=== PATIENT | female | born 1960 | race Caucasian/White ===

== ENCOUNTER → 2022-01-20 14:25 | Outpatient (CLI) | payer BC, SELFPAY ==
--- NOTE | 2022-01-20 14:32 | DI.RAD.S_ITS ---
PROCEDURE: XR CERVICAL SPINE 2V OR 3V INDICATIONS: Pain in a person with psoriatic arthritis TECHNIQUE: 3 view(s) of the cervical spine were acquired. COMPARISON: None. FINDINGS: Bones: No fractures or dislocations to the T1 level. The lateral masses of C1 appear intact on the odontoid view. No suspicious bony lesions. Disc space narrowing and facet hypertrophy noted in the lower cervical spine. Craniovertebral relationships are normal Soft tissues: No prevertebral soft tissue swelling. IMPRESSION: Degenerative disc disease and arthropathy in the lower cervical spine Approved by: Carlos Alberto Lockhart M.D. on 01/20/2022 at 15:55
== END ==
PROVIDERS: PCP Internal Medicine; Referring Provider Internal Medicine; Visit Provider Internal Medicine
DX: L40.50 Arthropathic psoriasis, unspecified (principal); M50.30 Other cervical disc degeneration, unspecified cervical region; M47.812 Spondylosis without myelopathy or radiculopathy, cervical region
CPT/HCPCS: 72040

== ENCOUNTER → 2023-04-27 11:10 | Outpatient (CLI) | payer BC, SELFPAY ==
--- NOTE | 2023-04-27 11:21 | DI.CT.S_ITS ---
PROCEDURE: CT SOFT TISSUE NECK WO/W CON INDICATIONS: LAB, SUBMANDIBULAR GLAND INFLAMMATION TECHNIQUE: Before and after the administration of intravenous contrast, 2.0 mm axial sections acquired through the neck and down to the taz. Additional 2.0 mm coronal and sagittal reformats were generated of the contrast enhanced images. For radiation dose reduction, the following was used: automated exposure control. COMPARISON: None. FINDINGS: Image quality: There is artifact associated with the metallic hardware. Artifact from the metallic hardware is reduced by metal reconstruction algorithm. Lymph nodes: No enlarged lymph nodes seen throughout the neck. Vessels: Visualized vasculature appears patent. Neck spaces: The oropharynx, nasopharynx, and pharynx demonstrate no mucosal lesions. The vocal cords, false vocal cords, pyriform sinuses, epiglottis, vallecula, and tongue base all appear normal. Extramucosal spaces appear unremarkable. Glands: In this patient with this given history, scrutiny is given to the submandibular glands. On precontrast imaging, no findings submandibular stones are submandibular duct stones are seen. On postcontrast imaging, the submandibular glands demonstrate a normal, symmetric appearance, without masses or abnormal enhancement. No surrounding inflammatory change can be seen. The parotid glands appear normal. Within the left thyroid gland, there is a 5 mm nonenhancing nodule, as on series 6, image 65. Miscellaneous: Visualized lungs appear clear. Superficial soft tissues appear normal. Bones: No suspicious bony lesions. Visualized sinuses and mastoids appear unremarkable. At least moderate cervical spine degenerative change can be seen. IMPRESSION: Normal appearing submandibular glands, without stones, masses, abnormal enhancement, or inflammatory change. Additional findings: At least moderate cervical spine degenerative change 5 mm left thyroid nodule incidentally noted. By published criteria, no specific imaging follow-up is recommended for a nodule of this size in a patient of this age. Dictated by: Dhruv Plata M.D. on 04/27/2023 at 14:47 Approved by: Dhruv Plata M.D. on 04/27/2023 at 14:50
[2023-04-27 11:43] LABS: Add Manual Diff / Slide Review NO; Basophils Absolute Auto 0 /uL (0-100); Basophils Percent Auto 0.6 % (0-2); Eosinophils Absolute Auto 100 /uL (0-450); Hematocrit 40.6 % (36-46); Hemoglobin 13.7 g/dL (12.0-16.0); Lymphocytes Absolute Auto 1700 /uL (1100-4500); Lymphocytes Percent Auto 34.2 % (25-40); Mean Corpuscular HGB Conc 33.7 % (30-36); Mean Corpuscular Hemoglobin 29.1 PG (26-34); Mean Corpuscular Volume 86.4 fL (80-100); Monocytes Absolute Auto 300 /uL (0-900); Monocytes Percent Auto 6.8 % (3-14); Neutrophils Absolute Auto 2800 /uL (1500-7000); Neutrophils Percent Auto 56.4 % (50-75); Platelet Count 303 X10^3/uL (150-400); Red Cell Distribution Width 12.9 % (11.6-14.8)
[2023-04-27 12:01] LABS: BUN Creatinine Ratio 38.9 (6-22); Blood Urea Nitrogen 21 mg/dL (7-17); Calcium 9.1 mg/dL (8.4-10.2); Carbon Dioxide 28 mmol/L (22-32); Chloride 104 mmol/L (98-107); Estimated Glomerular Filt Rate > 60 mL/min (>60); Glucose 136 mg/dL (80-110); HEMOLYSIS < 15 (0-50); Potassium 4.4 mmol/L (3.4-5.1); Sodium 139 mmol/L (137-145)
== END ==
PROVIDERS: PCP Physician Assistant; Referring Provider Physician Assistant; Visit Provider Physician Assistant
DX: E11.69 Type 2 diabetes mellitus with other specified complication (principal); E78.2 Mixed hyperlipidemia; L40.50 Arthropathic psoriasis, unspecified; I10 Essential (primary) hypertension; R59.9 Enlarged lymph nodes, unspecified; K11.20 Sialoadenitis, unspecified; M54.2 Cervicalgia
CPT/HCPCS: 36415; 70492; 80048; 85025; Q9967

== ENCOUNTER → 2023-04-29 09:53 | Outpatient (CLI) | payer BC, SELFPAY ==
--- NOTE | 2023-04-29 | DI.MG.S_ITS ---
BILATERAL DIGITAL SCREENING MAMMOGRAM 3D/2D WITH CAD: 04/29/2023 CLINICAL: Routine screening. Family history of breast cancer. No prior exams were available for comparison. There are scattered areas of fibroglandular density in both breasts (category b / 25%-50% glandular tissue). Current study was also evaluated with a Computer Aided Detection (CAD) system. No significant masses, calcifications, or other findings are seen in either breast. IMPRESSION: NEGATIVE There is no mammographic evidence of malignancy. A 1 year screening mammogram is recommended. Based on the Tyrer Cuzick model (a risk assessment model) the patient's lifetime risk is 7.0% and her 10 year risk is 2.9%. According to the ACR, ACS, and NCCN guidelines, an annual breast MRI exam along with mammogram is recommended if the patient's lifetime risk is 20% or greater. This exam was interpreted at Station ID: [id number]. NOTE: For mammograms, a report in lay terms will be sent to the patient. Approximately 15% of breast malignancies will not be visualized mammographically. In the management of a palpable breast mass, a negative mammogram must not discourage biopsy of a clinically suspicious lesion. Electronically Signed By: Robina martinez/ajay:04/29/2023 15:41:46 letter sent: Normal Exam ACR BI-RADS Category 1: Negative 3341F
== END ==
LOC: MAMMO 09:53
PROVIDERS: PCP Physician Assistant; Referring Provider Physician Assistant; Visit Provider Physician Assistant
DX: Z12.31 Encounter for screening mammogram for malignant neoplasm of breast (principal); Z80.3 Family history of malignant neoplasm of breast
CPT/HCPCS: 77063; 77067

== ENCOUNTER → 2024-03-07 08:47 | Outpatient (CLI) | payer BC, SELFPAY ==
[2024-03-07 10:24] LABS: Hematocrit 42.7 % (36-46); Hemoglobin 14.3 g/dL (12.0-16.0); Mean Corpuscular HGB Conc 33.6 % (30-36); Mean Corpuscular Hemoglobin 29.2 PG (26-34); Mean Corpuscular Volume 86.9 fL (80-100); Platelet Count 264 X10^3/uL (150-400); Red Blood Cell Count 4.91 X10^6/uL (4.0-5.2)
[2024-03-07 10:26] LABS: Hemoglobin A1C% w Est Avg Glu 8.4 % (4.0-6.0)
[2024-03-07 10:44] LABS: Alanine Aminotransferase 32 IU/L (<35); Albumin 4.5 g/dL (3.5-5.0); Albumin Globulin Ratio 1.6 (1.0-2.8); Alkaline Phosphatase 95 U/L (38-126); Aspartate Aminotransferase 23 IU/L (14-36); Bilirubin Total 1.1 mg/dL (0.2-1.3); Blood Urea Nitrogen 20 mg/dL (7-17); Calcium 9.2 mg/dL (8.4-10.2); Carbon Dioxide 29 mmol/L (22-32); Chloride 106 mmol/L (98-107); Cholesterol 219 mg/dL (140-199); Estimated Glomerular Filt Rate > 60 mL/min (>60); Globulin 2.9 g/dL (1.7-4.1); Glucose 181 mg/dL (80-110); HDL Cholesterol 63 mg/dL (40-60); HEMOLYSIS < 15 (0-50); LDL Cholesterol Calculated 136 mg/dL (<100); Potassium 3.9 mmol/L (3.4-5.1); Sodium 141 mmol/L (137-145); Total Protein 7.4 g/dL (6.3-8.2); Triglycerides 98 mg/dL (35-150)
[2024-03-07 10:57] LABS: Creatinine Urine Random 62.77 mg/dL
[2024-03-07 11:14] LABS: Microalbumin Urine Random 0.8 mg/dL (0-1.6)
[2024-03-07 11:18] LABS: TSH w/ Reflex to FT4 0.79 uIU/mL (0.47-4.68)
== END ==
PROVIDERS: PCP Internal Medicine; Referring Provider Internal Medicine; Visit Provider Internal Medicine
DX: E78.2 Mixed hyperlipidemia (principal); I10 Essential (primary) hypertension; E11.42 Type 2 diabetes mellitus with diabetic polyneuropathy
CPT/HCPCS: 36415; 80053; 80061; 82043; 82570; 83036; 84443; 85027

== ENCOUNTER 2024-05-15 10:29 | Day surgery (SDC) | payer BC, SELFPAY ==
[2024-05-15 10:58] VITALS: BP 146/83; PULSE 74; RESP 16; TEMP 36.4; O2SAT 97
[2024-05-15] MEDS: LACTATED RINGERS 1,000 ML 42 ML IV (11:14)
--- NOTE | 2024-05-15 11:47 | P.HP_ITS ---
History of Present Illness History of Present Illness Date Patient Seen: 05/15/24 Time Patient Seen: 11:47 Chief complaint: Colonoscopy Narrative: 63-year-old woman history of numerous abdominal surgeries here for screening colonoscopy. Last colonoscopy 6 years ago normal. No family history of colon cancer. She had a iatrogenic colon injury undetected at the initial operation subsequently diverting colostomy takedown fistula was so forth. [facility] Medical History (Updated 02/08/24 @ 14:06 by Abdelrahman Simental MD) Bee sting-induced anaphylaxis Family history of melanoma Pustular psoriasis History of kidney stones Mixed hyperlipidemia Essential hypertension Type 2 diabetes mellitus with polyneuropathy Psoriatic arthritis Social History Smoking Status: Former smoker Meds Home Medications and Allergies Home Medications Medication Instructions Recorded Confirmed Type abatacept 125 mg/mL subcutaneous 125 mg SUBCUT QWEEK 02/08/24 05/15/24 History auto-injector (Orencia ClickJect) apremilast 30 mg tablet (Otezla) 30 mg PO BID 02/08/24 05/15/24 History azelastine 137 mcg (0.1 %) nasal 2 spray intranasal BID 02/08/24 05/15/24 History spray aerosol betamethasone dipropionate 0.05 % 1 applic topical DAILY PRN Rash 02/08/24 05/15/24 History topical ointment canagliflozin 300 mg tablet 300 mg PO DAILY #90 tabs 02/08/24 05/15/24 Rx (Invokana) carvedilol 3.125 mg tablet 3.125 mg PO DAILY 02/08/24 05/15/24 History celecoxib 100 mg capsule 100 mg PO BID 02/08/24 05/15/24 History diclofenac sodium 1 % topical gel 4 g topical QID 02/08/24 05/15/24 History epinephrine 0.3 mg/0.3 mL 0.3 mg (0.3 mL) IM Q5-15M PRN 02/08/24 05/15/24 Rx injection, auto-injector (EpiPen anaphylaxis #4 ea 2-Rasta) fluticasone propionate 50 1 spray intranasal DAILY 02/08/24 05/15/24 History mcg/actuation nasal spray,suspension lisinopril 10 mg tablet 10 mg PO DAILY 02/08/24 05/15/24 History multivitamin 1 tab PO DAILY 02/08/24 05/15/24 History sitagliptin phosphate 100 mg 100 mg PO DAILY #90 tabs 02/08/24 05/15/24 Rx tablet (Januvia) tamsulosin 0.4 mg capsule (Flomax) 0.4 mg PO DAILY 02/08/24 05/15/24 History tramadol 50 mg tablet 50 mg PO Q4H PRN Pain (Scale Score 02/08/24 05/15/24 History 4-6) Allergies Allergy/AdvReac Type Severity Reaction Status Date / Time amoxicillin Allergy Severe hives, Verified 05/15/24 10:50 rash, swelling bee venom protein (honey bee) Allergy Severe Anaphylaxis Verified 05/15/24 10:50 clindamycin Allergy Severe Rash Verified 05/15/24 10:50 Latex, Natural Rubber Allergy Severe Rash Verified 05/15/24 10:50 metformin AdvReac Severe Nausea Verified 05/15/24 10:50 pioglitazone AdvReac Intermediate muscle Verified 05/15/24 10:50 aches, nausea, tired Exam Vital Signs (past 8 hours): - 05/15/24 10:58 Temperature 97.6 F Pulse Rate 74 Respiratory Rate 16 Blood Pressure 146/83 H Pulse Oximetry 97 Oxygen Delivery Method Room Air Oxygen Delivery Method Room Air Narrative Exam Narrative: General adult woman alert oriented no acute distress Chest nonlabored respiration Extremities warm well perfused Assessment & Plan Assessment & Plan narrative: The patient requires colorectal screening and colonoscopy is recommended. Technical details were discussed. Risks, benefits, alternatives explained. Risks including but not limited to myocardial infarction, aspiration, bleeding, pain, missed lesion, incomplete examination, need for further radiographic studies, intestinal injury, and need for major abdominal surgery were discussed. All questions were answered to their satisfaction, and they are in agreement with this plan. Time-Based Coding :: [TOTAL MINUTES] spent with patient and on the chart (including review of chart, obtaining history, exam, reviewing outside data, placing orders, documenting exam and treatment plan, and counseling patient) on [DATE].
[2024-05-15 12:08] VITALS: BP 109/62; PULSE 78; RESP 14; TEMP 36.2; O2SAT 95
--- NOTE | 2024-05-15 12:10 | P.OP.COLON_ITS ---
Operative Date/Time/Diagnoses Date of procedure: 05/15/24 Time of procedure: 12:10 Pre-op diagnosis: Colorectal screening Procedure & Clinicians Study performed: Screening colonoscopy Same procedure as scheduled: Yes Indications: Colorectal screening Surgeon: Faizan Winston Procedure Notes Procedure in detail: The history and physical was performed/updated and the patient is ASA class is 2. The procedure was discussed in detail with the patient. Potential risks co mplications including infection, bleeding, missed diagnosis, perforation, need for surgery, and were explained. Their questions were answered and informed consent was obtained. Patient was brought to the procedure room and placed standard monitoring equipment. The patient's vital signs were monitored continuously throughout the entire procedure. Prior to starting time-out was performed. The patient was placed in the left lateral recumbent position. Procedural sedation was administered by anesthesia. Examination began with a thorough inspection of the perianal area there was no evidence of fissures, fistulae, external hemorrhoids or cutaneous malignancy. The colonoscopy scope was then placed into the anal canal and was advanced to the cecum, which was identified by the ileocecal valve, the appendiceal orifice and the confluence of the taenia. The scope was then slowly withdrawn examining colon thoroughly in all directions, irrigating it of any residual stool. The scope was retroflexed within the rectum The patient tolerated the procedure well. They will be discharged once criteria are met. The prep was of good/excellent quality. The withdrawl time was 7 minutes. FINDINGS * Normal colorectal anastomosis * No mass or polyps Specimen(s): none sent Impression: Normal anastomosis Post-procedure Plan for aftercare: Consider no further colonoscopy unless symptomatic given extensive abdominal surgery history Disposition: same day surgery
[2024-05-15 12:13] VITALS: BP 103/66; PULSE 84; RESP 10; O2SAT 94
[2024-05-15 12:18] VITALS: BP 113/68; PULSE 76; RESP 10; O2SAT 97
[2024-05-15 12:23] VITALS: BP 121/72; PULSE 70; RESP 14; O2SAT 97
[2024-05-15 12:29] VITALS: BP 129/92; PULSE 86; RESP 13; TEMP 36.4; O2SAT 98
== END 2024-05-15 12:54 | disposition home or self-care (01) ==
PROVIDERS: PCP Internal Medicine; Referring Provider Surgery; Visit Provider Surgery
PROC: 0DJD8ZZ Inspection of Lower Intestinal Tract, Via Natural or Artificial Opening Endoscopic (ICD-10-PCS; CPT 45378; principal; 2024-05-15 11:30)
DX: Z12.11 Encounter for screening for malignant neoplasm of colon (principal)
CPT/HCPCS: 45378; J2704

== ENCOUNTER → 2024-06-25 15:22 | Outpatient (CLI) | payer BC, SELFPAY ==
--- NOTE | 2024-06-25 15:23 | DI.MG.S_ITS ---
BILATERAL DIGITAL SCREENING MAMMOGRAM 3D/2D WITH CAD: 06/25/2024 CLINICAL: Routine screening. Family history of breast cancer. Comparison is made to exam dated: 04/29/2023 mammogram - [facility]. Mammogram 11/07/2019. There are scattered areas of fibroglandular density (category b / 25%-50% glandular tissue). Current study was also evaluated with a Computer Aided Detection (CAD) system. No significant masses, calcifications, or other findings are seen in either breast. Right breast scar marker. There has been no significant interval change. IMPRESSION: NEGATIVE There is no mammographic evidence of malignancy. A 1 year screening mammogram is recommended. Based on the Tyrer Cuzick model (a risk assessment model) the patient's lifetime risk is 6.8% and her 10 year risk is 2.9%. According to the ACR, ACS, and NCCN guidelines, an annual breast MRI exam along with mammogram is recommended if the patient's lifetime risk is 20% or greater. This exam was interpreted at Station ID: [id number]. NOTE: For mammograms, a report in lay terms will be sent to the patient. Approximately 15% of breast malignancies will not be visualized mammographically. In the management of a palpable breast mass, a negative mammogram must not discourage biopsy of a clinically suspicious lesion. Electronically Signed By: Aníbal Murcia M.D. [facility] [place] [place]/:06/26/2024 11:49:52 letter sent: Normal Exam ACR BI-RADS Category 1: Negative
== END ==
PROVIDERS: PCP Internal Medicine; Referring Provider Internal Medicine; Visit Provider Internal Medicine
DX: Z12.31 Encounter for screening mammogram for malignant neoplasm of breast (principal); Z80.3 Family history of malignant neoplasm of breast
CPT/HCPCS: 77063; 77067

== ENCOUNTER → 2024-07-23 09:09 | Outpatient (CLI) | payer BC, SELFPAY ==
[2024-07-23 10:28] LABS: Hemoglobin A1C% w Est Avg Glu 9.2 % (4.0-6.0)
[2024-07-23 10:49] LABS: BUN Creatinine Ratio 32.2 (6-22); Blood Urea Nitrogen 19 mg/dL (7-17); Calcium 9.7 mg/dL (8.4-10.2); Carbon Dioxide 27 mmol/L (22-32); Chloride 101 mmol/L (98-107); Estimated Glomerular Filt Rate > 60 mL/min (>60); Glucose 279 mg/dL (80-110); HEMOLYSIS < 15 (0-50); Potassium 4.5 mmol/L (3.4-5.1); Sodium 138 mmol/L (137-145)
== END ==
LOC: LAB 09:10
PROVIDERS: PCP Internal Medicine; Referring Provider Internal Medicine; Visit Provider Internal Medicine
DX: E11.42 Type 2 diabetes mellitus with diabetic polyneuropathy (principal)
CPT/HCPCS: 36415; 80048; 83036

== ENCOUNTER → 2025-06-12 08:04 | Outpatient (CLI) | payer BC, SELFPAY ==
[2025-06-12 09:02] LABS: Hemoglobin A1C% w Est Avg Glu 7.5 % (4.0-6.0)
[2025-06-12 09:19] LABS: Blood Urea Nitrogen 20 mg/dL (7-17); Calcium 9.5 mg/dL (8.4-10.2); Carbon Dioxide 28 mmol/L (22-32); Chloride 102 mmol/L (98-107); Estimated Glomerular Filt Rate > 60 mL/min (>60); Glucose 167 mg/dL (70-99); HEMOLYSIS < 15 (0-50); Potassium 4.6 mmol/L (3.4-5.1); Sodium 138 mmol/L (137-145)
== END ==
PROVIDERS: PCP Internal Medicine; Referring Provider Internal Medicine; Visit Provider Internal Medicine
DX: E11.42 Type 2 diabetes mellitus with diabetic polyneuropathy (principal)
CPT/HCPCS: 36415; 80048; 83036

== ENCOUNTER → 2025-07-15 13:25 | Outpatient (CLI) | payer BC, SELFPAY ==
--- NOTE | 2025-07-15 13:26 | DI.MG.S_ITS ---
MM screening mammo BI: 07/15/2025. BI-RADS: 1 CLINICAL: 64-year old female for bilateral screening mammogram. Tyrer-Cuzick lifetime risk of 7.8%. No personal or first-degree family history of breast cancer. Current reported family history of breast cancer: paternal grandmother and maternal aunt. The patient had a prior right breast biopsy. PRIOR EXAMS 06/25/2024, 04/29/2023, 12/02/2020. MAMMOGRAPHY TECHNIQUE: 2D and 3D (tomosynthesis) digital mammographic views obtained, with additional images as needed for full coverage. Current study was also evaluated with a Computer Aided Detection (CAD) system. DENSITY B. There are scattered areas of fibroglandular density. MAMMOGRAPHY FINDINGS Bilateral: No suspicious mass, asymmetry, microcalcification, or other abnormality seen. IMPRESSION: * No evidence of malignancy. RECOMMENDATIONS Bilateral * Annual screening mammography. OVERALL ASSESSMENT CATEGORY BI-RADS-1: Negative. The [employer] recommends annual screening mammography beginning at age 40 for women with average risk of breast cancer. ELECTRONICALLY SIGNED: Rosalba Chisholm M.D. on 07/15/2025 at 05:36:43 PM PT Interpreting Station ID: [id number]
== END ==
LOC: MAMMO 13:26
PROVIDERS: PCP Internal Medicine; Referring Provider Internal Medicine; Visit Provider Internal Medicine
DX: Z12.31 Encounter for screening mammogram for malignant neoplasm of breast (principal); Z80.3 Family history of malignant neoplasm of breast
CPT/HCPCS: 77063; 77067